=== PATIENT | male | born 1960 | race Caucasian/White ===

== ENCOUNTER 2016-05-21 13:39 | Outpatient (CLI) | payer OTHER | END 2016-05-21 23:00 | LOC: LAB SRH 13:39 | DX: M10.9 Gout, unspecified (principal) | CPT/HCPCS: 90074; 92860 ==

== ENCOUNTER 2016-06-02 09:45 | Outpatient (CLI) | payer OTHER ==
--- NOTE | 2016-06-02 15:29 | DIAGNOSTIC IMAGING REPORT ---
PROCEDURE: MR LOWER EXT JOINT WO CONT-LT INDICATION: LEFT KNEE PAIN TECHNIQUE: PD and FAT-SAT PD sagittal and coronal images. FAT-SAT PD axial images. High-resolution T2 sagittal images of the cruciate ligaments. (Total of 6 sequences). COMPARISON: None. FINDINGS: Small spurs all three joint compartments. Extensive bone marrow contusion of the medial tibial plateau with a linear lesion demonstrating no signal suggestive of a nondepressed medial tibial plateau fracture. Cruciate and collateral ligaments are normal. Medial meniscus tear involving the body and the root of the posterior horn. Mild chondromalacia of the medial compartment. There is truncation of the lateral meniscus body suspicious for a free edge tear. Normal quadriceps and patellar tendons. Mild chondromalacia patella. Moderate effusion. Popliteal cyst measures 5 cm in length. IMPRESSION: 1. Medial tibial plateau bone contusion and nondepressed medial tibial plateau fracture 2. Medial meniscus tear at the body and root of the posterior horn 3. Findings suspicious for a lateral meniscus body free edge tear 4. 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 Moderate effusion 6. Popliteal cyst
== END 2016-06-02 23:00 | disposition home or self-care (01) ==
LOC: MRI SRH 09:45
DX: S82.142A Displaced bicondylar fracture of left tibia, initial encounter for closed fracture (principal); M23.252 Derangement of posterior horn of lateral meniscus due to old tear or injury, left knee; M71.22 Synovial cyst of popliteal space [Baker], left knee; M22.42 Chondromalacia patellae, left knee